=== PATIENT | male | born 1935 | race Caucasian/White ===

== ENCOUNTER 2017-09-18 08:47 | Observation (INO) | payer MEDICARE, OTHER ==
[2017-09-17 12:47] LABS: BASOPHILS % (AUTO) 0.7 % (0-1); EOSINOPHILS # (AUTO) 0.1 X10'3 (0-0.9); EOSINOPHILS % (AUTO) 2.7 % (0-6); HEMATOCRIT 35.7 % (42.0-52.0); HEMOGLOBIN 12.2 g/dl (14.0-17.9); LYMPHOCYTES # (AUTO) 0.7 X10'3 (1.1-4.8); LYMPHOCYTES % (AUTO) 14.5 % (21-51); MEAN CORPUSCULAR HEMOGLOBIN 32.5 PG (27.0-31.0); MEAN CORPUSCULAR HGB CONC 34.2 % (33.0-36.5); MONOCYTES # (AUTO) 0.5 X10'3 (0-0.9); MONOCYTES % (AUTO) 9.9 % (2-12); NEUTROPHILS # (AUTO) 3.6 X10'3 (1.8-7.7); NEUTROPHILS % (AUTO) 72.2 % (42-75); PLATELET COUNT 150 X10'3 (140-440); RED BLOOD COUNT 3.76 X10'6 (4.70-6.10); RED CELL DISTRIBUTION WIDTH 14.9 % (11.5-14.5)
[2017-09-17 12:57] LABS: INR 1.1 INR; PARTIAL THROMBOPLASTIN TIME 27 SECONDS (22-32); PROTHROMBIN TIME 11.8 SECONDS (9.0-12.0)
[2017-09-17 13:03] LABS: ALBUMIN 3.2 G/DL (3.4-5.0); ANION GAP 6 (8-16); BLOOD UREA NITROGEN 26 MG/DL (7-18); BUN/CREATININE RATIO 25.5 (5.4-32.0); CALCIUM 8.7 MG/DL (8.5-10.1); CHLORIDE 107 MMOL/L (99-107); CREATININE 1.02 MG/DL (0.60-1.10); GLUCOSE 76 MG/DL (70-104); POTASSIUM 4.5 MMOL/L (3.5-5.1); SODIUM 141 MMOL/L (135-145); TOTAL CARBON DIOXIDE 28.1 MMOL/L (24-32); eGFR 70 ML/MIN
[2017-09-18] VITALS (15 sets, daily range): BP systolic 128–171; BP diastolic 55–98
[~2017-09-18] VITALS: Ht 180.3 cm; Wt 89.7 kg
[2017-09-18] MEDS ORDERED: LORazepam 0.5 MG tablet PO PRN (09:25)
[2017-09-18] MEDS ORDERED: diphenhydrAMINE 25mg capsule PO PRN (09:25)
[2017-09-18] MEDS ORDERED: FURO-150 PO (09:27)
[2017-09-18] MEDS ORDERED: POTA10TA19 PO (09:27)
[2017-09-18] MEDS ORDERED: MAGN400C PO (09:27)
[2017-09-18] MEDS ORDERED: ASCO-261 PO (09:27)
[2017-09-18] MEDS ORDERED: ASPI81TA52 PO (09:27)
[2017-09-18] MEDS ORDERED: UBID100C16 PO (09:27)
[2017-09-18] MEDS ORDERED: LISI-600 PO (09:27)
[2017-09-18] MEDS ORDERED: LEVO25TA7 PO (09:27)
[2017-09-18] MEDS ORDERED: TURM538C PO (09:44)
[2017-09-18] MEDS ORDERED: FLAX100031 PO (09:44)
[2017-09-18] MEDS ORDERED: CHOL10002 PO (09:44)
[2017-09-18] MEDS ORDERED: APIX5TAB3 PO (09:44)
[2017-09-18] MEDS ORDERED: CALC-212 PO (09:44)
[2017-09-18] MEDS: normal saline 1000ml 1,000 ML IV SCH ×2 (09:59→19:25)
[2017-09-18] MEDS ORDERED: iohexol 350MG/ML 100ml bottle IV ONE ×2 (11:07→12:26)
[2017-09-18] MEDS ORDERED: midazolam 2 mg/2 ml injection ONE (11:07)
[2017-09-18] MEDS ORDERED: iohexol 350 MG/ML 50ML vial IV ONE (11:07)
[2017-09-18] MEDS ORDERED: LIDOcaine 1% (10mg/ml) 2ml vial ONE (11:07)
[2017-09-18] MEDS ORDERED: fentaNYL/PF 50MCG/1 ML 2ML syringe ONE (11:07)
[2017-09-18] MEDS ORDERED: heparin 1,000unit/ml 10ml vial 10 ML ONE (11:07)
[2017-09-18] MEDS ORDERED: nitroGLYCERIN-Tridil 50MG/D5W 250 ML IV ONE (11:07)
[2017-09-18] MEDS ORDERED: HYDROcodone/acetaminophen 10/325mg tab PO PRN (20:40)
[2017-09-18] MEDS ORDERED: OXAZEpam 15mg capsule PO PRN (20:40)
[2017-09-18] MEDS ORDERED: HYDROcodone/acetaminophen 5mg/325mg tablet PO PRN (20:40)
[2017-09-19 03:00] VITALS: BP 149/88
[2017-09-19 06:00] VITALS: BP 151/92
[2017-09-19] MEDS ORDERED: levoTHYROXINE 25mcg tablet PO SCH (07:00)
[2017-09-19] MEDS ORDERED: ascorbic acid 500mg tablet PO SCH (08:00)
[2017-09-19] MEDS ORDERED: magnesium oxide 400mg tablet PO SCH (08:00)
[2017-09-19] MEDS ORDERED: vitamin D (cholecalciferol) 1,000 unit tablet PO SCH (08:00)
[2017-09-19] MEDS ORDERED: aspirin 81mg tablet.DR PO SCH (08:00)
[2017-09-19] MEDS ORDERED: potassium chloride 10mEq ER tablet PO SCH (08:00)
[2017-09-19] MEDS ORDERED: furosemide 20MG tablet PO SCH (08:00)
[2017-09-19] MEDS ORDERED: lisinopril 10 MG tablet PO SCH (08:00)
[2017-09-19] MEDS ORDERED: [UNRECOGNIZED DRUG - REMARK] PEG SCH (08:00)
[2017-09-19] MEDS ORDERED: calcium carbonate/vitamin D3 tablet PO SCH (08:00)
[2017-09-19] MEDS ORDERED: apixaban 5mg tablet PO SCH (20:00)
== END 2017-09-19 10:40 | disposition home or self-care (01) ==
LOC: SSTAY O 08:47 → PCU 3S 19:40
PROVIDERS: ADMIT Internal Medicine Cardiovascular Disease; ATTEND Internal Medicine Cardiovascular Disease
DX: I34.0 Nonrheumatic mitral (valve) insufficiency (principal); I25.10 Atherosclerotic heart disease of native coronary artery without angina pectoris; E78.5 Hyperlipidemia, unspecified; I48.2 Chronic atrial fibrillation; I34.1 Nonrheumatic mitral (valve) prolapse; I36.1 Nonrheumatic tricuspid (valve) insufficiency; R01.1 Cardiac murmur, unspecified; I11.0 Hypertensive heart disease with heart failure; I50.9 Heart failure, unspecified; Z95.0 Presence of cardiac pacemaker; Z95.1 Presence of aortocoronary bypass graft; Z79.899 Other long term (current) drug therapy; Z79.82 Long term (current) use of aspirin; Z79.01 Long term (current) use of anticoagulants
CPT/HCPCS: 36415; 80048; 85025; 85610; 85730; 87070; 93005; 93459; A6257; C1760; C1769; C1887; G0378; J1644; J3010; J3490; J7030; Q0163; Q9967; 99152; 99153; A4620; J2250

== ENCOUNTER 2018-03-13 12:49 | Outpatient (CLI) | payer MEDICARE, OTHER ==
[~2018-03-13 12:49] MED LIST: APIX5TAB3 PO; ASCO-261 PO; ASPI81TA52 PO; CALC-212 PO; CHOL10002 PO; FLAX100031 PO; FURO-150 PO; LEVO25TA7 PO; LISI-600 PO; MAGN400C PO; POTA10TA19 PO; TURM538C PO; UBID100C16 PO
== END 2018-03-13 23:59 | disposition home or self-care (01) ==
LOC: CARD DIAG 12:49
PROVIDERS: ATTEND Internal Medicine Cardiovascular Disease
DX: I08.3 Combined rheumatic disorders of mitral, aortic and tricuspid valves (principal); I10 Essential (primary) hypertension; I48.91 Unspecified atrial fibrillation; Z79.82 Long term (current) use of aspirin
CPT/HCPCS: 93306

== ENCOUNTER 2018-04-16 08:58 | Day surgery (SDC) | payer MEDICARE, OTHER ==
[2018-04-15 17:39] LABS: EOSINOPHILS # (AUTO) 0.2 X10'3 (0-0.9); HEMATOCRIT 36.8 % (42.0-52.0); HEMOGLOBIN 12.2 g/dl (14.0-17.9); LYMPHOCYTES # (AUTO) 0.7 X10'3 (1.1-4.8); LYMPHOCYTES % (AUTO) 15.1 % (21-51); MEAN CORPUSCULAR HEMOGLOBIN 31.8 PG (27.0-31.0); MEAN CORPUSCULAR HGB CONC 33.1 % (33.0-36.5); MEAN PLATELET VOLUME 9.2 FL (7.4-10.4); MONOCYTES # (AUTO) 0.4 X10'3 (0-0.9); MONOCYTES % (AUTO) 7.9 % (2-12); NEUTROPHILS # (AUTO) 3.5 X10'3 (1.8-7.7); PLATELET COUNT 142 X10'3 (140-440); RED BLOOD COUNT 3.83 X10'6 (4.70-6.10); RED CELL DISTRIBUTION WIDTH 15.3 % (11.5-14.5); WHITE BLOOD COUNT 4.9 X10'3 (4.5-11.0)
[2018-04-15 17:53] LABS: ALBUMIN 3.3 G/DL (3.4-5.0); ANION GAP 6 (8-16); BLOOD UREA NITROGEN 33 MG/DL (7-18); BUN/CREATININE RATIO 28.4 (5.4-32.0); CALCIUM 8.8 MG/DL (8.5-10.1); CHLORIDE 105 MMOL/L (99-107); CREATININE 1.16 MG/DL (0.60-1.10); GLUCOSE 92 MG/DL (70-104); SODIUM 143 MMOL/L (135-145); TOTAL CARBON DIOXIDE 31.6 MMOL/L (24-32); eGFR 60 ML/MIN
[2018-04-15 17:56] LABS: INR 1.2 INR; PROTHROMBIN TIME 12.3 SECONDS (9.0-12.0)
[2018-04-16] VITALS (11 sets, daily range): BP systolic 104–137; BP diastolic 66–92
[~2018-04-16] VITALS: Ht 182.9 cm; Wt 90.9 kg
[2018-04-16] MEDS ORDERED: normal saline 1000ml 1,000 ML IV SCH ×2 (09:25→18:00)
[2018-04-16] MEDS ORDERED: diphenhydrAMINE 25mg capsule PO ONE (09:25)
[2018-04-16] MEDS ORDERED: LORazepam 0.5 MG tablet PO ONE (09:25)
[2018-04-16] MEDS ORDERED: CALC-336 PO (09:39)
[2018-04-16] MEDS ORDERED: AMIO200T40 PO ×2 (09:44→19:34)
[2018-04-16] MEDS ORDERED: LIDOcaine/PRILOcaine 5gm cream TP ONE (09:50)
[2018-04-16] MEDS ORDERED: midazolam 2 mg/2 ml injection ONE (13:48)
[2018-04-16] MEDS ORDERED: nitroGLYCERIN-Tridil 50MG/D5W 250 ML IV ONE (13:48)
[2018-04-16] MEDS ORDERED: iohexol 350MG/ML 100ml bottle IV ONE (13:49)
[2018-04-16] MEDS ORDERED: heparin 1,000unit/ml 10ml vial 10 ML ONE ×2 (13:49→16:44)
[2018-04-16] MEDS ORDERED: LIDOcaine 1% (10mg/ml)w/preservative injection 20ml MDV ONE (13:49)
[2018-04-16] MEDS ORDERED: iohexol 350 MG/ML 50ML vial IV ONE (13:49)
[2018-04-16] MEDS ORDERED: diltiazem 5mg/ml 5ml inj. IV ONE (15:01)
[2018-04-16] MEDS ORDERED: heparin 25,000 UNIT/250ml bag 250 ML IV ONE (15:24)
[2018-04-16] MEDS ORDERED: iohexol 350 MG/1 ML 200ml bottle ONE (15:24)
[2018-04-16] MEDS ORDERED: clopidogrel 300mg tablet ONE (16:27)
[2018-04-16] MEDS ORDERED: aspirin 81mg tab.chew PO ONE (18:15)
[2018-04-16] MEDS ORDERED: potassium Cl 20 mEq SR tablet PO STA (19:10)
[2018-04-16] MEDS ORDERED: CARV6.253 PO (19:34)
[2018-04-16] MEDS: furosemide 40mg/4ml inj IV SCH (20:22)
[2018-04-17 02:00] VITALS: BP 135/84
[2018-04-17 05:59] LABS: BASOPHILS % (AUTO) 0.7 % (0-1); EOSINOPHILS # (AUTO) 0.2 X10'3 (0-0.9); EOSINOPHILS % (AUTO) 3.5 % (0-6); HEMATOCRIT 36.9 % (42.0-52.0); HEMOGLOBIN 12.2 g/dl (14.0-17.9); LYMPHOCYTES # (AUTO) 0.7 X10'3 (1.1-4.8); LYMPHOCYTES % (AUTO) 16.4 % (21-51); MEAN CORPUSCULAR HEMOGLOBIN 31.8 PG (27.0-31.0); MEAN CORPUSCULAR HGB CONC 33.1 % (33.0-36.5); MEAN CORPUSCULAR VOLUME 96.3 FL (78-98); MEAN PLATELET VOLUME 8.8 FL (7.4-10.4); MONOCYTES # (AUTO) 0.4 X10'3 (0-0.9); MONOCYTES % (AUTO) 8.7 % (2-12); NEUTROPHILS # (AUTO) 3.2 X10'3 (1.8-7.7); NEUTROPHILS % (AUTO) 70.7 % (42-75); PLATELET COUNT 130 X10'3 (140-440); RED BLOOD COUNT 3.83 X10'6 (4.70-6.10); RED CELL DISTRIBUTION WIDTH 15.2 % (11.5-14.5); WHITE BLOOD COUNT 4.5 X10'3 (4.5-11.0)
[2018-04-17 06:00] VITALS: BP 134/86
[2018-04-17 06:24] LABS: ANION GAP 7 (8-16); BLOOD UREA NITROGEN 30 MG/DL (7-18); BUN/CREATININE RATIO 24.8 (5.4-32.0); CALCIUM 8.4 MG/DL (8.5-10.1); CHLORIDE 104 MMOL/L (99-107); CHOL/HDL RATIO 3.2 (0.00-4.99); CHOLESTEROL 125 MG/DL (0-200); CREATININE 1.21 MG/DL (0.60-1.10); GLUCOSE 103 MG/DL (70-104); HDL CHOLESTEROL 39 MG/DL (35-60); LDL CHOLESTEROL 82 MG/DL (50-100); POTASSIUM 4.1 MMOL/L (3.5-5.1); SODIUM 140 MMOL/L (135-145); TRIGLYCERIDES 28 MG/DL (20-135); eGFR 57 ML/MIN
[2018-04-17] MEDS ORDERED: ATOR20TA66 PO (06:52)
[2018-04-17] MEDS ORDERED: ASPI-1071 PO (06:52)
[2018-04-17] MEDS ORDERED: CLOP75TA35 PO (06:52)
[2018-04-17 07:00] VITALS: BP 134/86
[2018-04-17] MEDS ORDERED: ascorbic acid 500mg tablet PO SCH (08:00)
[2018-04-17] MEDS ORDERED: levoTHYROXINE 25mcg tablet PO SCH (08:00)
[2018-04-17] MEDS ORDERED: calcium carbonate 500mg tablet PO SCH (08:00)
[2018-04-17] MEDS ORDERED: aspirin 81mg tablet.DR PO SCH (08:00)
[2018-04-17] MEDS ORDERED: clopidogrel 75mg tablet PO SCH (08:00)
[2018-04-17] MEDS ORDERED: magnesium oxide 400mg tablet PO SCH (08:00)
[2018-04-17] MEDS ORDERED: non-formulary drug (Ubidecarenone (Coq-10) 300 MG) PO SCH (08:00)
[2018-04-17] MEDS ORDERED: atorvastatin 20mg tablet PO SCH (08:00)
[2018-04-17] MEDS ORDERED: FLAXSEED OIL 1400 MG PO SCH (08:00)
[2018-04-17] MEDS ORDERED: potassium chloride 10mEq ER tablet PO SCH (08:00)
[2018-04-17] MEDS ORDERED: vitamin D (cholecalciferol) 1,000 unit tablet PO SCH (08:00)
[2018-04-17] MEDS ORDERED: furosemide 20MG tablet PO SCH (08:00)
[2018-04-17] MEDS ORDERED: lisinopril 10 MG tablet PO SCH (08:00)
[2018-04-17] MEDS ORDERED: apixaban 5mg tablet PO SCH (08:00)
[2018-04-17] MEDS ORDERED: potassium Cl 20 mEq SR tablet PO SCH ×2 (08:00→08:30)
[2018-04-17] MEDS ORDERED: carvedilol 6.25mg tablet PO SCH (08:00)
[2018-04-17] MEDS: furosemide 40mg/4ml inj IV SCH (08:12)
[2018-04-17 08:21] VITALS: BP_SYST 134
== END 2018-04-17 11:00 | disposition home or self-care (01) ==
LOC: SSTAY O 08:58 → PCU 3S 20:05 → SSTAY O 04-17 11:00
PROVIDERS: ATTEND Internal Medicine Cardiovascular Disease
DX: I25.810 Atherosclerosis of coronary artery bypass graft(s) without angina pectoris (principal); E78.5 Hyperlipidemia, unspecified; I48.91 Unspecified atrial fibrillation; I08.0 Rheumatic disorders of both mitral and aortic valves; I47.2 Ventricular tachycardia; I49.5 Sick sinus syndrome; E03.9 Hypothyroidism, unspecified; I11.0 Hypertensive heart disease with heart failure; I50.9 Heart failure, unspecified; I49.8 Other specified cardiac arrhythmias; Z88.4 Allergy status to anesthetic agent; Z87.440 Personal history of urinary (tract) infections; Z98.52 Vasectomy status; Z90.89 Acquired absence of other organs; Z95.0 Presence of cardiac pacemaker; Z86.718 Personal history of other venous thrombosis and embolism; Z95.1 Presence of aortocoronary bypass graft; Z79.01 Long term (current) use of anticoagulants; Z79.899 Other long term (current) drug therapy; Z88.8 Allergy status to other drugs, medicaments and biological substances; Z98.890 Other specified postprocedural states; Z82.3 Family history of stroke
CPT/HCPCS: 36415; 80048; 80061; 83880; 84443; 85025; 85347; 85610; 87070; 93005; 93312; 93459; 99152; 99153; A6257; A6449; C1874; C9600; J1644; J1940; J2001; J2250; J7030; Q0163; Q9967; A4620; C1725; C1769; G0378; J3490

== ENCOUNTER 2018-04-29 11:22 | Emergency (ER) | payer MEDICARE, OTHER ==
[~2018-04-29] VITALS: Ht 182.9 cm; Wt 83.0 kg
[~2018-04-29 11:22] MED LIST changes: +AMIO200T40 PO; +ASPI-1071 PO; -ASPI81TA52 PO; +ATOR20TA66 PO; -CALC-212 PO; +CALC-336 PO; +CARV6.253 PO; +CLOP75TA35 PO; -TURM538C PO
[2018-04-29] MEDS ORDERED: oxymetazoline 15 ML nasal spray NS ONE (11:55)
[2018-04-29] MEDS ORDERED: tranexamic acid 100mg/ml inj. TP ONE (11:55)
[2018-04-29 12:26] VITALS: BP 139/72
== END 2018-04-29 13:56 | disposition home or self-care (01) ==
LOC: ER 11:23
DX: R04.0 Epistaxis (principal); I48.91 Unspecified atrial fibrillation; I25.10 Atherosclerotic heart disease of native coronary artery without angina pectoris; I11.0 Hypertensive heart disease with heart failure; I50.9 Heart failure, unspecified; Z95.1 Presence of aortocoronary bypass graft; Z98.890 Other specified postprocedural states; Z86.718 Personal history of other venous thrombosis and embolism; Z88.6 Allergy status to analgesic agent; Z79.82 Long term (current) use of aspirin; Z79.899 Other long term (current) drug therapy; Z79.01 Long term (current) use of anticoagulants
CPT/HCPCS: 99283

== ENCOUNTER 2018-06-10 08:42 | Emergency (ER) | payer MEDICARE, OTHER ==
[~2018-06-10] VITALS: Ht 182.9 cm; Wt 91.8 kg
[2018-06-10 08:52] VITALS: BP 133/73
[2018-06-10 09:35] LABS: BASOPHILS % (AUTO) 0.9 % (0-1); EOSINOPHILS # (AUTO) 0.2 X10'3 (0-0.9); EOSINOPHILS % (AUTO) 4.2 % (0-6); HEMOGLOBIN 12.1 g/dl (14.0-17.9); LYMPHOCYTES # (AUTO) 0.6 X10'3 (1.1-4.8); LYMPHOCYTES % (AUTO) 12.9 % (21-51); MEAN CORPUSCULAR HEMOGLOBIN 32.6 PG (27.0-31.0); MEAN CORPUSCULAR HGB CONC 33.5 % (33.0-36.5); MEAN CORPUSCULAR VOLUME 97.5 FL (78-98); MEAN PLATELET VOLUME 8.2 FL (7.4-10.4); MONOCYTES # (AUTO) 0.3 X10'3 (0-0.9); NEUTROPHILS # (AUTO) 3.5 X10'3 (1.8-7.7); PLATELET COUNT 133 X10'3 (140-440); RED BLOOD COUNT 3.69 X10'6 (4.70-6.10); RED CELL DISTRIBUTION WIDTH 16.9 % (11.5-14.5); WHITE BLOOD COUNT 4.7 X10'3 (4.5-11.0)
[2018-06-10 09:41] LABS: ALANINE AMINOTRANSFERASE 18 U/L (12-78); ALBUMIN 3.4 G/DL (3.4-5.0); ALBUMIN/GLOBULIN RATIO 0.9 (1.1-1.5); ALKALINE PHOSPHATASE 46 IU/L (46-116); ANION GAP 8 (8-16); ASPARTATE AMINO TRANSFERASE 20 U/L (10-37); BILIRUBIN,TOTAL 0.9 MG/DL (0.1-1.0); BLOOD UREA NITROGEN 27 MG/DL (7-18); BUN/CREATININE RATIO 22.1 (5.4-32.0); CALCIUM 8.5 MG/DL (8.5-10.1); CHLORIDE 106 MMOL/L (99-107); CREATININE 1.22 MG/DL (0.60-1.10); GLUCOSE 129 MG/DL (70-104); POTASSIUM 3.8 MMOL/L (3.5-5.1); SODIUM 143 MMOL/L (135-145); TOTAL CARBON DIOXIDE 29.5 MMOL/L (24-32); TOTAL PROTEIN 7.1 G/DL (6.4-8.2); eGFR 57 ML/MIN
[2018-06-10 09:47] LABS: PROTHROMBIN TIME 13.3 SECONDS (9.0-12.0)
[2018-06-10 09:48] LABS: INR 1.3 INR
[2018-06-10] MEDS ORDERED: furosemide 10 MG/1 ML 10ml inj IV ONE (10:10)
== END 2018-06-10 10:41 | disposition home or self-care (01) ==
LOC: ER 08:45
DX: I11.0 Hypertensive heart disease with heart failure (principal); I50.9 Heart failure, unspecified; I48.91 Unspecified atrial fibrillation; I25.10 Atherosclerotic heart disease of native coronary artery without angina pectoris; Z86.718 Personal history of other venous thrombosis and embolism; Z95.1 Presence of aortocoronary bypass graft; Z98.890 Other specified postprocedural states; Z88.6 Allergy status to analgesic agent; Z88.8 Allergy status to other drugs, medicaments and biological substances; Z79.82 Long term (current) use of aspirin; Z95.5 Presence of coronary angioplasty implant and graft
CPT/HCPCS: 36415; 71045; 80053; 83880; 84484; 85025; 85610; 93005; 96374; 99284; J1940

== ENCOUNTER 2018-06-30 17:17 | Emergency (ER) | payer MEDICARE, OTHER ==
[~2018-06-30] VITALS: Ht 182.9 cm; Wt 86.1 kg
[2018-06-30] MEDS ORDERED: oxymetazoline 15 ML nasal spray NS ONE (19:20)
--- NOTE | 2018-06-30 19:34 | NUR ---
PATIENT HAS HAD NOSEBLEEDS FOR TWO YEARS. PATIENT HAS SEEN TWO ENTS: IST SAW DR RICHARDSON, THEN SAW DR CAMACHO 1 YEAR AGO PATIENT WAS ON COUMADIN, SWITCHED TO ELIQUIS [address] HARRIS AND IS ALSO ON PLAVIX FOR "HIS HEART" PATIENT IS TO HAVE A "MITRAL VALVE CLIPPING" AT [facility]; PT WAS SEEN AT [facility] [place] FROM JUN 16 TO JUN 20 FOR GROSS EDEMA: "20 LBS OF FLUID TAKEN OFF HIM" PER DAUGHTER AT BEDSIDE AFTER ADMINISTERING AFRIN: SECOND NOSE CLIP PLACED ON SUPERIOR NOSE AND ICE PACK TO FOREHEAD PLACED WITH DEYSI WRAP (ACTUAL ICE). ORAL SUCTION IN ROOM, BUT YANKAUER TAKEN AWAY FROM PATIENT. PATIENT ASKED TO NOT TALK AND ALLOW CLOTTING TO HAPPEN. 100 ML OF SANGUINOUS FLUID IN SUCTION CANISTER. PATIENT HAS SPIT UP ONE LARGE CLOT SINCE TAKING YANKAUER AWAT. WHEN PATIENT WAS SELF SUCTIONING, HE WAS REPEATEDLY COUGHING UP MANY CLOTS.
--- NOTE | 2018-06-30 19:46 | NUR ---
SPOKE WITH DR GONZALEZ, ORDER FOR LABS
[2018-06-30 20:34] LABS: BASOPHILS % (AUTO) 0.5 % (0-1); EOSINOPHILS # (AUTO) 0.2 X10'3 (0-0.9); EOSINOPHILS % (AUTO) 2.7 % (0-6); HEMATOCRIT 35.6 % (42.0-52.0); LYMPHOCYTES # (AUTO) 0.7 X10'3 (1.1-4.8); LYMPHOCYTES % (AUTO) 12.3 % (21-51); MEAN CORPUSCULAR HEMOGLOBIN 32.8 PG (27.0-31.0); MEAN CORPUSCULAR HGB CONC 33.7 g/dL (33.0-36.5); MEAN CORPUSCULAR VOLUME 97.2 FL (78-98); MEAN PLATELET VOLUME 8.8 FL (7.4-10.4); MONOCYTES # (AUTO) 0.4 X10'3 (0-0.9); MONOCYTES % (AUTO) 7.2 % (2-12); NEUTROPHILS # (AUTO) 4.7 X10'3 (1.8-7.7); NEUTROPHILS % (AUTO) 77.3 % (42-75); PLATELET COUNT 180 X10'3 (140-440); RED BLOOD COUNT 3.66 X10'6 (4.70-6.10); RED CELL DISTRIBUTION WIDTH 16.7 % (11.5-14.5); WHITE BLOOD COUNT 6.1 X10'3 (4.5-11.0)
[2018-06-30 20:58] LABS: INR 1.4 INR; PARTIAL THROMBOPLASTIN TIME 29 SECONDS (22-32); PROTHROMBIN TIME 13.7 SECONDS (9.0-12.0)
--- NOTE | 2018-06-30 21:30 | NUR ---
DR ABBASI REMOVED BOTH NASAL CLAMPS AND ICE PACK FROM HEAD
--- NOTE | 2018-06-30 22:25 | NUR ---
DR ABBASI PLACED RHINO ROCKET UP LEFT NARES: TAPED TO FACE
[2018-06-30 23:24] VITALS: BP 110/73
== END 2018-06-30 23:31 | disposition home or self-care (01) ==
LOC: ER 17:18
DX: R04.0 Epistaxis (principal); I11.0 Hypertensive heart disease with heart failure; I50.9 Heart failure, unspecified; I48.91 Unspecified atrial fibrillation; I25.10 Atherosclerotic heart disease of native coronary artery without angina pectoris; Z88.8 Allergy status to other drugs, medicaments and biological substances; Z79.899 Other long term (current) drug therapy; Z79.82 Long term (current) use of aspirin; Z86.718 Personal history of other venous thrombosis and embolism; Z87.440 Personal history of urinary (tract) infections; Z90.49 Acquired absence of other specified parts of digestive tract; Z98.890 Other specified postprocedural states; Z95.1 Presence of aortocoronary bypass graft
CPT/HCPCS: 30901; 36415; 85025; 85610; 85730; 99284

== ENCOUNTER 2018-08-12 14:07 | Emergency (ER) | payer MEDICARE, OTHER ==
[~2018-08-12] VITALS: Ht 182.9 cm; Wt 83.0 kg
[2018-08-12 14:09] VITALS: BP 111/68
[2018-08-12] MEDS ORDERED: tranexamic acid 100mg/ml inj. TP ONE (15:20)
[2018-08-12 15:29] LABS: BASOPHILS % (AUTO) 0.8 % (0-1); EOSINOPHILS # (AUTO) 0.1 X10'3 (0-0.9); HEMATOCRIT 30.5 % (42.0-52.0); HEMOGLOBIN 10.4 g/dl (14.0-17.9); LYMPHOCYTES # (AUTO) 0.7 X10'3 (1.1-4.8); LYMPHOCYTES % (AUTO) 11.5 % (21-51); MEAN CORPUSCULAR HEMOGLOBIN 33.1 PG (27.0-31.0); MEAN CORPUSCULAR VOLUME 97.3 FL (78-98); MONOCYTES # (AUTO) 0.5 X10'3 (0-0.9); MONOCYTES % (AUTO) 7.7 % (2-12); PLATELET COUNT 159 X10'3 (140-440); RED BLOOD COUNT 3.13 X10'6 (4.70-6.10); RED CELL DISTRIBUTION WIDTH 15.2 % (11.5-14.5); WHITE BLOOD COUNT 6.5 X10'3 (4.5-11.0)
[2018-08-12] MEDS ORDERED: LIDOcaine 1% w/epiNEPHrine 1:200,000 30ml vial IM ONE (15:35)
[2018-08-12 15:37] LABS: INR 1.3 INR; PROTHROMBIN TIME 12.6 SECONDS (9.0-12.0)
[2018-08-12 15:41] LABS: ALANINE AMINOTRANSFERASE 16 U/L (12-78); ALBUMIN 3.3 G/DL (3.4-5.0); ALBUMIN/GLOBULIN RATIO 0.9 (1.1-1.5); ALKALINE PHOSPHATASE 55 IU/L (46-116); ANION GAP 8 (8-16); ASPARTATE AMINO TRANSFERASE 21 U/L (10-37); BILIRUBIN,TOTAL 0.9 MG/DL (0.1-1.0); BLOOD UREA NITROGEN 67 MG/DL (7-18); BUN/CREATININE RATIO 30.6 (5.4-32.0); CALCIUM 8.9 MG/DL (8.5-10.1); CHLORIDE 104 MMOL/L (99-107); CREATININE 2.19 MG/DL (0.60-1.10); GLUCOSE 119 MG/DL (70-104); POTASSIUM 4.8 MMOL/L (3.5-5.1); SODIUM 141 MMOL/L (135-145); TOTAL CARBON DIOXIDE 29.2 MMOL/L (24-32); TOTAL PROTEIN 7.1 G/DL (6.4-8.2); eGFR 29 ML/MIN
== END 2018-08-12 18:10 | disposition home or self-care (01) ==
LOC: ER 14:07
DX: R04.0 Epistaxis (principal); H73.892 Other specified disorders of tympanic membrane, left ear; I48.91 Unspecified atrial fibrillation; I25.10 Atherosclerotic heart disease of native coronary artery without angina pectoris; I11.0 Hypertensive heart disease with heart failure; I50.9 Heart failure, unspecified; Z88.8 Allergy status to other drugs, medicaments and biological substances; Z79.899 Other long term (current) drug therapy; Z79.82 Long term (current) use of aspirin; Z86.718 Personal history of other venous thrombosis and embolism; Z87.440 Personal history of urinary (tract) infections; Z90.49 Acquired absence of other specified parts of digestive tract; Z95.1 Presence of aortocoronary bypass graft; Z98.890 Other specified postprocedural states
CPT/HCPCS: 30901; 36415; 70486; 80053; 85025; 85610; 99284

== ENCOUNTER 2018-08-21 14:58 | Inpatient (IN) | payer MEDICARE, OTHER | END 2018-08-26 16:55 | disposition home health service (06) | LOC: PCU 3S 08-24 17:15 → ER 14:58 → MED 3N 08-22 12:37 → ED HOLD 20:12 | DX: I50.33 Acute on chronic diastolic (congestive) heart failure (principal); N17.9 Acute kidney failure, unspecified; N18.9 Chronic kidney disease, unspecified; I48.2 Chronic atrial fibrillation ==

== ENCOUNTER 2019-01-21 19:04 | Inpatient (IN) | payer MEDICARE, OTHER ==
[~2019-01-21] VITALS: Ht 185.4 cm; Wt 81.6 kg
[~2019-01-21 19:04] MED LIST changes: -AMIO200T40 PO; +AMIO200T61 PO; -APIX5TAB3 PO; -FURO-150 PO; -LISI-600 PO; +MIDO5TAB4 PO; -POTA10TA19 PO
[2019-01-21] MEDS ORDERED: normal saline 1000ml 1,000 ML IV ONE (19:35)
[2019-01-21] MEDS ORDERED: CefTRIAXone/D5W-Rocephin 1gm 50 ML IV ONE (19:35)
[2019-01-21] MEDS ORDERED: acetaminophen 325mg tablet PO ONE (19:35)
--- NOTE | 2019-01-21 19:38 | NUR ---
DAUGHTER DONALD AT BEDSIDE - REPORTS PT IS NORMALLY VERY ACTIVE AND WAS EVEN DRIVING YESTERDAY. TODAY PT HAD NEW ONSET GENERALIZED WEAKNESS WITH ALOC. PT ALERT TO NAME AND BDAY AND FOLLOWS COMMANDS. EQUAL NURSE GYNECOLOGY AND PUSH PULLS, BUT WEAK.
--- NOTE | 2019-01-21 19:47 | NUR ---
AT BEDSIDE FOR EVAL
[2019-01-21 20:00] LABS: BASOPHILS % (AUTO) 0.6 % (0-1); EOSINOPHILS % (AUTO) 0.1 % (0-6); HEMOGLOBIN 11.2 g/dl (14.0-17.9); LYMPHOCYTES # (AUTO) 0.5 X10'3 (1.1-4.8); LYMPHOCYTES % (AUTO) 9.4 % (21-51); MEAN CORPUSCULAR HEMOGLOBIN 31.2 PG (27.0-31.0); MEAN CORPUSCULAR VOLUME 94.6 FL (78-98); MEAN PLATELET VOLUME 7.9 FL (7.4-10.4); MONOCYTES # (AUTO) 0.4 X10'3 (0-0.9); MONOCYTES % (AUTO) 7.6 % (2-12); NEUTROPHILS # (AUTO) 4.7 X10'3 (1.8-7.7); NEUTROPHILS % (AUTO) 82.3 % (42-75); PLATELET COUNT 149 X10'3 (140-440); RED CELL DISTRIBUTION WIDTH 17.2 % (11.5-14.5); WHITE BLOOD COUNT 5.7 X10'3 (4.5-11.0)
[2019-01-21 20:13] LABS: ALANINE AMINOTRANSFERASE 21 U/L (12-78); ALBUMIN 3.1 G/DL (3.4-5.0); ALBUMIN/GLOBULIN RATIO 0.9 (1.1-1.5); ALKALINE PHOSPHATASE 73 IU/L (46-116); ANION GAP 5 (8-16); ASPARTATE AMINO TRANSFERASE 22 U/L (10-37); BILIRUBIN,TOTAL 1.3 MG/DL (0.1-1.0); BLOOD UREA NITROGEN 23 MG/DL (7-18); BUN/CREATININE RATIO 18.1 (5.4-32.0); CALCIUM 8.8 MG/DL (8.5-10.1); CHLORIDE 106 MMOL/L (99-107); CREATININE 1.27 MG/DL (0.60-1.10); GLUCOSE 127 MG/DL (70-104); POTASSIUM 5.5 MMOL/L (3.5-5.1); SODIUM 140 MMOL/L (135-145); TOTAL CARBON DIOXIDE 28.6 MMOL/L (24-32); TOTAL PROTEIN 6.5 G/DL (6.4-8.2); eGFR 54 ML/MIN
[2019-01-21 20:33] LABS: CLARITY,URINE CLEAR (Clear); COLOR,URINE AMBER (Yellow); GLUCOSE, URINE NEGATIVE (Neg); KETONES,URINE NEGATIVE (Neg); LEUKOCYTE ESTERASE ,URINE NEGATIVE (Neg); NITRITES, URINE NEGATIVE (Neg); OCCULT BLOOD,URINE NEGATIVE (Neg); PH,URINE 8.5 (4.8-8.0); PROTEIN,URINE 30 mg/dl (Neg)
[2019-01-21 20:36] LABS: UA COLLECTION TYPE STRAIGHT CATH
[2019-01-21 20:38] LABS: AMORPHOUS PHOSPHATES 1+; BACTERIA,URINE NONE SEEN /HPF (Neg); MUCUS STRANDS FEW /LPF (Neg); RBC,URINE NONE SEEN /HPF (0-2); SQUAMOUS EPITHELIAL CELL,UR NONE SEEN /LPF (FEW); WBC,URINE NONE SEEN /HPF (0-4)
[2019-01-21 20:41] LABS: PARTIAL THROMBOPLASTIN TIME 23 SECONDS (22-32)
[2019-01-21] MEDS ORDERED: ketorolac trometh. 30mg/ml inj. IV ONE (21:15)
[2019-01-21] MEDS ORDERED: MULT-955 PO (21:38)
[2019-01-21] MEDS ORDERED: ATOR20TA PO (21:38)
[2019-01-21] MEDS ORDERED: APIX5TAB3 PO (21:38)
[2019-01-21] MEDS ORDERED: CLOP75TA33 PO (21:38)
[2019-01-21] MEDS ORDERED: MIDO2.5T14 PO (21:38)
[2019-01-21] MEDS ORDERED: BUME1TAB8 PO (21:38)
[2019-01-21] MEDS ORDERED: CHOL100046 PO (21:38)
[2019-01-21] MEDS ORDERED: POTA10TA19 PO (21:38)
[2019-01-21 21:39] LABS: URINE AMPHETAMINE SCREEN NEGATIVE (Neg); URINE BARBITUATE SCREEN NEGATIVE (Neg); URINE BENZODIAZEPINES SCREEN NEGATIVE (Neg); URINE CANNABINOID SCREEN NEGATIVE (Neg); URINE COCAINE SCREEN NEGATIVE (Neg); URINE METHADONE SCREEN NEGATIVE (Neg); URINE OPIATE SCREEN NEGATIVE (Neg); URINE PHENCYCLIDINE SCREEN NEGATIVE (Neg)
--- NOTE | 2019-01-21 21:45 | NUR ---
pt is more alert and responsive - daughter remains at bedside.
[2019-01-21] MEDS ORDERED: azithromycin/NS 500mg/250ml 250 ML IV ONE (22:00)
[2019-01-21 22:14] LABS: TROPONIN I < 0.04 NG/ML (0.0-0.05)
[2019-01-21] MEDS ORDERED: acetaminophen 325mg tablet PO PRN (22:20)
[2019-01-21] MEDS ORDERED: HYDROcodone/acetaminophen 5mg/325mg tablet PO PRN (22:20)
[2019-01-21] MEDS ORDERED: magnesium hydroxide 30ml (MOM) UD suspension PO PRN (22:20)
[2019-01-21] MEDS ORDERED: ondansetron/PF 4mg/2ml inj IV PRN (22:20)
[2019-01-21] MEDS ORDERED: HYDROcodone/acetaminophen 10/325mg tab PO PRN (22:20)
[2019-01-21] MEDS ORDERED: mag hydrox/Alum hydrox/simeth 30ml oral suspension PO PRN (22:20)
--- NOTE | 2019-01-21 23:31 | NUR ---
REPORT CALLED FROM ER BY DAVION LEDESMA. AWAITING PT ARRIVAL TO UNIT
[2019-01-21 23:50] VITALS: BP 119/74
--- NOTE | 2019-01-21 23:50 | NUR ---
PT ARRIVED TO UNIT VIA GURNEY. TRANSFERRED SELF TO BED WITH FWW. CALL LIGHT IN REACH, VITALS TAKEN, BLL. WILL CONTINUE TO MONITOR
[2019-01-22 06:19] LABS: BASOPHILS % (AUTO) 0.5 % (0-1); EOSINOPHILS % (AUTO) 0.1 % (0-6); HEMATOCRIT 34.8 % (42.0-52.0); HEMOGLOBIN 11.6 g/dl (14.0-17.9); LYMPHOCYTES # (AUTO) 0.8 X10'3 (1.1-4.8); LYMPHOCYTES % (AUTO) 12.7 % (21-51); MEAN CORPUSCULAR HEMOGLOBIN 31.3 PG (27.0-31.0); MEAN CORPUSCULAR HGB CONC 33.4 g/dL (33.0-36.5); MEAN CORPUSCULAR VOLUME 93.8 FL (78-98); MEAN PLATELET VOLUME 7.8 FL (7.4-10.4); MONOCYTES # (AUTO) 0.6 X10'3 (0-0.9); MONOCYTES % (AUTO) 9.9 % (2-12); NEUTROPHILS # (AUTO) 4.8 X10'3 (1.8-7.7); NEUTROPHILS % (AUTO) 76.8 % (42-75); PLATELET COUNT 168 X10'3 (140-440); RED BLOOD COUNT 3.71 X10'6 (4.70-6.10); RED CELL DISTRIBUTION WIDTH 17.4 % (11.5-14.5); WHITE BLOOD COUNT 6.2 X10'3 (4.5-11.0)
[2019-01-22 06:29] LABS: ALBUMIN 3.1 G/DL (3.4-5.0); ANION GAP 7 (8-16); BLOOD UREA NITROGEN 27 MG/DL (7-18); BUN/CREATININE RATIO 18.1 (5.4-32.0); CALCIUM 8.7 MG/DL (8.5-10.1); CHLORIDE 106 MMOL/L (99-107); CREATININE 1.49 MG/DL (0.60-1.10); GLUCOSE 129 MG/DL (70-104); SODIUM 140 MMOL/L (135-145); TOTAL CARBON DIOXIDE 27.4 MMOL/L (24-32); eGFR 45 ML/MIN
--- NOTE | 2019-01-22 06:33 | NUR ---
Problems reprioritized. Patient report given, questions answered & plan of care reviewed with DAVION Frazier.
--- NOTE | 2019-01-22 06:56 | NUR ---
Patient in room [facility]. I have received report from Mike RICARDO and had the opportunity to ask questions and assume patient care.
[2019-01-22 07:00] VITALS: BP 129/76
[2019-01-22] MEDS: acetaminophen 325mg tablet PO PRN ×3 (07:28→23:13)
[2019-01-22] MEDS: multivitamins, therapeutics tablet PO SCH (07:29)
[2019-01-22] MEDS: magnesium oxide 400mg tablet PO SCH ×2 (07:29→20:10)
[2019-01-22] MEDS: ascorbic acid 500mg tablet PO SCH (07:29)
[2019-01-22] MEDS: carvedilol 6.25mg tablet PO SCH ×2 (07:29→20:11)
[2019-01-22] MEDS: calcium carbonate 500mg tablet PO SCH (07:29)
[2019-01-22] MEDS: levoTHYROXINE 25mcg tablet PO SCH (07:30)
[2019-01-22] MEDS: amiodarone 200mg tablet PO SCH (07:30)
[2019-01-22] MEDS: vitamin D (cholecalciferol) 1,000 unit tablet PO SCH (07:30)
[2019-01-22] MEDS: apixaban 5mg tablet PO SCH ×2 (07:30→20:10)
[2019-01-22] MEDS: clopidogrel 75mg tablet PO SCH (07:30)
[2019-01-22] MEDS ORDERED: FLAXSEED OIL 1400 MG PO SCH (08:00)
[2019-01-22] MEDS: midodrine tablet 2.5 MG TABLET PO SCH ×2 (08:00→20:10)
[2019-01-22] MEDS ORDERED: non-formulary drug (Ubidecarenone (Coq-10) 300 MG) PO SCH (08:00)
--- NOTE | 2019-01-22 09:16 | NUR ---
Patient had an episode of bloody urine, exhibiting difficulty with urinating, bladder is distended. Bladder scan done showed 250ml of residual urine. Dr. Guerin notified via paging system
[2019-01-22] MEDS ORDERED: LIDOcaine 2% 10ml TOPICAL JELLY (Urojet) MM ONE (10:00)
--- NOTE | 2019-01-22 10:26 | NUR ---
Giordano catheter Fr16 inserted. Urojet jelly applied into the meatus prior to insertion. Patient tolerated the procedure well. Dark tea-colored urine with some blood clots noted when giordano catheter was inserted.
[2019-01-22 11:00] VITALS: BP 137/77
[2019-01-22] MEDS: bumetanide 1mg tablet PO SCH ×2 (11:45→20:10)
--- NOTE | 2019-01-22 12:04 | NUR ---
Dr. Guerin notified about patient's urine color (appears to be dark chocolate color). Charge nurse Yaquelin was also notified about this
[2019-01-22 14:46] LABS: CLARITY,URINE CLOUDY (Clear); COLOR,URINE AMBER (Yellow); GLUCOSE, URINE NEGATIVE (Neg); KETONES,URINE NEGATIVE (Neg); LEUKOCYTE ESTERASE ,URINE TRACE (Neg); NITRITES, URINE NEGATIVE (Neg); OCCULT BLOOD,URINE LARGE (Neg); PH,URINE 6.5 (4.8-8.0); PROTEIN,URINE 100 mg/dl (Neg)
[2019-01-22 15:07] LABS: UA COLLECTION TYPE FOLEY CATH
[2019-01-22 15:19] LABS: BACTERIA,URINE NONE SEEN /HPF (Neg); RBC,URINE TNTC /HPF (0-2)
[2019-01-22 15:20] LABS: HYALINE CASTS 0-3 /LPF (NEGATIVE); MUCUS STRANDS MODERATE /LPF (Neg); SQUAMOUS EPITHELIAL CELL,UR FEW /LPF (FEW)
[2019-01-22 15:45] LABS: AMORPHOUS PHOSPHATES 1+
--- NOTE | 2019-01-22 15:50 | NUR ---
Dr. Guerin notified about the fever this am and again this afternoon 102.5F.
[2019-01-22] MEDS ORDERED: LORazepam 0.5 MG tablet PO PRN (17:15)
[2019-01-22] MEDS ORDERED: LORazepam 2 mg/ml vial IV PRN (17:15)
--- NOTE | 2019-01-22 17:24 | NUR ---
Patient has been attempting to pull out his giordano catheter, I caught him holding his giordano catheter tubing. Patient was instructed to not pull his catheter because he will bleed since he already have bloody urine. Addendum: 01/22/19 at 1727 by Karin Flores RN Got an order for sitter and Heidy BOSWELL. Daughter at bedside at the moment
[2019-01-22 18:00] VITALS: BP 120/71
--- NOTE | 2019-01-22 18:30 | NUR ---
Patient in room [facility]. I have received report from DAVION Frazier and had the opportunity to ask questions and assume patient care.
--- NOTE | 2019-01-22 18:39 | NUR ---
Problems reprioritized. Patient report given, questions answered & plan of care reviewed with Mike RICARDO.
--- NOTE | 2019-01-22 20:00 | NUR ---
2 rn skin check was performed with DAVION Acosta
[2019-01-22] MEDS: lactobacillus rhamnosus 10,000 MMU CELLS/CAPSULE PO SCH (20:10)
[2019-01-22] MEDS: atorvastatin 20mg tablet PO SCH (20:10)
[2019-01-22] MEDS: CefTRIAXone/D5W-Rocephin 1gm 50 ML IV SCH (20:11)
[2019-01-22] MEDS: diatr meglu/diatrizoate 30ml oral sol.-(3 dose) bottle PO SCH (20:12)
[2019-01-22] MEDS: azithromycin/NS 500mg/250ml 250 ML IV SCH (22:24)
--- NOTE | 2019-01-22 23:08 | NUR ---
notified of 102.1 F fever. no new orders. will give tylenol per PRN order
--- NOTE | 2019-01-22 23:29 | NUR ---
pt became increasingly agitated/restless, unable to calm down through therapeutic communication. pt still attempting to get out of bed. PO prn ativan given. will continue to monitor
[2019-01-23 00:42] VITALS: BP 117/61
--- NOTE | 2019-01-23 00:45 | NUR ---
pt tempt at 101.3F pt in no apparent distress, placed cool wash cloth on forehead, resting comfortably. will continue to monitor
[2019-01-23 05:51] VITALS: BP 125/70
[2019-01-23 06:23] LABS: BASOPHILS % (AUTO) 0.2 % (0-1); EOSINOPHILS % (AUTO) 0 % (0-6); HEMATOCRIT 34.8 % (42.0-52.0); HEMOGLOBIN 11.7 g/dl (14.0-17.9); LYMPHOCYTES # (AUTO) 0.7 X10'3 (1.1-4.8); LYMPHOCYTES % (AUTO) 8.9 % (21-51); MEAN CORPUSCULAR HEMOGLOBIN 31.4 PG (27.0-31.0); MEAN CORPUSCULAR HGB CONC 33.5 g/dL (33.0-36.5); MEAN CORPUSCULAR VOLUME 93.7 FL (78-98); MEAN PLATELET VOLUME 8.1 FL (7.4-10.4); MONOCYTES # (AUTO) 0.7 X10'3 (0-0.9); NEUTROPHILS # (AUTO) 6.8 X10'3 (1.8-7.7); NEUTROPHILS % (AUTO) 82.9 % (42-75); PLATELET COUNT 165 X10'3 (140-440); RED BLOOD COUNT 3.71 X10'6 (4.70-6.10); WHITE BLOOD COUNT 8.2 X10'3 (4.5-11.0)
--- NOTE | 2019-01-23 06:29 | NUR ---
Problems reprioritized. Patient report given, questions answered & plan of care reviewed with DAVION Frazier.
[2019-01-23 06:44] LABS: ALBUMIN 2.9 G/DL (3.4-5.0); ANION GAP 10 (8-16); BLOOD UREA NITROGEN 32 MG/DL (7-18); BUN/CREATININE RATIO 19.8 (5.4-32.0); CALCIUM 8.1 MG/DL (8.5-10.1); CHLORIDE 104 MMOL/L (99-107); CREATININE 1.62 MG/DL (0.60-1.10); GLUCOSE 134 MG/DL (70-104); POTASSIUM 4.6 MMOL/L (3.5-5.1); SODIUM 141 MMOL/L (135-145); TOTAL CARBON DIOXIDE 27.5 MMOL/L (24-32); eGFR 41 ML/MIN
--- NOTE | 2019-01-23 06:44 | NUR ---
Patient in room [facility]. I have received report from Mike RICARDO and had the opportunity to ask questions and assume patient care.
[2019-01-23 07:00] VITALS: BP 149/80
[2019-01-23] MEDS: diatr meglu/diatrizoate 30ml oral sol.-(3 dose) bottle PO SCH ×2 (07:12→10:12)
[2019-01-23] MEDS: midodrine tablet 2.5 MG TABLET PO SCH ×2 (08:00→20:00)
[2019-01-23 11:00] VITALS: BP 147/81
[2019-01-23] MEDS: carvedilol 6.25mg tablet PO SCH ×2 (11:18→20:51)
[2019-01-23] MEDS: vitamin D (cholecalciferol) 1,000 unit tablet PO SCH (11:18)
[2019-01-23] MEDS: multivitamins, therapeutics tablet PO SCH (11:18)
[2019-01-23] MEDS: amiodarone 200mg tablet PO SCH (11:18)
[2019-01-23] MEDS: levoTHYROXINE 25mcg tablet PO SCH (11:18)
[2019-01-23] MEDS: acetaminophen 325mg tablet PO PRN ×2 (11:19→23:39)
[2019-01-23] MEDS: bumetanide 1mg tablet PO SCH ×2 (11:19→20:51)
[2019-01-23] MEDS: lactobacillus rhamnosus 10,000 MMU CELLS/CAPSULE PO SCH ×2 (11:19→20:51)
[2019-01-23] MEDS: apixaban 5mg tablet PO SCH ×2 (11:20→20:51)
[2019-01-23] MEDS: calcium carbonate 500mg tablet PO SCH (11:20)
[2019-01-23] MEDS: clopidogrel 75mg tablet PO SCH (11:20)
[2019-01-23] MEDS: ascorbic acid 500mg tablet PO SCH (11:20)
[2019-01-23] MEDS: magnesium oxide 400mg tablet PO SCH ×2 (11:23→20:51)
[2019-01-23 18:00] VITALS: BP 136/73
--- NOTE | 2019-01-23 18:00 | NUR ---
Patient in room [facility]. I have received report from DAVION Frazier and had the opportunity to ask questions and assume patient care.
--- NOTE | 2019-01-23 18:17 | NUR ---
Problems reprioritized. Patient report given, questions answered & plan of care reviewed with Mike RICARDO.
[2019-01-23] MEDS: CefTRIAXone/D5W-Rocephin 1gm 50 ML IV SCH (20:50)
[2019-01-23] MEDS: atorvastatin 20mg tablet PO SCH (20:51)
--- NOTE | 2019-01-23 22:40 | NUR ---
pt temperature elevated at 102.8F MD notified, ordered lactic and 2 sets of blood cultures.
[2019-01-23] MEDS: azithromycin/NS 500mg/250ml 250 ML IV SCH (23:39)
[2019-01-24] VITALS: BP 130/74
[2019-01-24 05:58] LABS: BASOPHILS % (AUTO) 0.3 % (0-1); EOSINOPHILS % (AUTO) 0.3 % (0-6); HEMATOCRIT 30.8 % (42.0-52.0); HEMOGLOBIN 10.4 g/dl (14.0-17.9); LYMPHOCYTES # (AUTO) 0.7 X10'3 (1.1-4.8); LYMPHOCYTES % (AUTO) 9.3 % (21-51); MEAN CORPUSCULAR HEMOGLOBIN 31.8 PG (27.0-31.0); MEAN CORPUSCULAR HGB CONC 33.9 g/dL (33.0-36.5); MEAN CORPUSCULAR VOLUME 93.8 FL (78-98); MEAN PLATELET VOLUME 8.1 FL (7.4-10.4); MONOCYTES # (AUTO) 0.7 X10'3 (0-0.9); MONOCYTES % (AUTO) 9.4 % (2-12); NEUTROPHILS # (AUTO) 6.3 X10'3 (1.8-7.7); NEUTROPHILS % (AUTO) 80.7 % (42-75); PLATELET COUNT 151 X10'3 (140-440); RED BLOOD COUNT 3.28 X10'6 (4.70-6.10); RED CELL DISTRIBUTION WIDTH 17.1 % (11.5-14.5); WHITE BLOOD COUNT 7.8 X10'3 (4.5-11.0)
--- NOTE | 2019-01-24 06:30 | NUR ---
Patient in room [facility]. I have received report from Mike RICARDO and had the opportunity to ask questions and assume patient care.
--- NOTE | 2019-01-24 06:35 | NUR ---
Problems reprioritized. Patient report given, questions answered & plan of care reviewed with DAVION Sher.
[2019-01-24 06:36] LABS: ALBUMIN 2.5 G/DL (3.4-5.0); ANION GAP 7 (8-16); BLOOD UREA NITROGEN 30 MG/DL (7-18); BUN/CREATININE RATIO 22.6 (5.4-32.0); CALCIUM 7.3 MG/DL (8.5-10.1); CHLORIDE 105 MMOL/L (99-107); CREATININE 1.33 MG/DL (0.60-1.10); GLUCOSE 114 MG/DL (70-104); POTASSIUM 3.4 MMOL/L (3.5-5.1); SODIUM 140 MMOL/L (135-145); eGFR 51 ML/MIN
[2019-01-24 07:21] VITALS: BP 127/71
[2019-01-24] MEDS: midodrine tablet 2.5 MG TABLET PO SCH ×2 (08:00→19:49)
[2019-01-24] MEDS: bumetanide 1mg tablet PO SCH ×2 (08:49→19:48)
[2019-01-24] MEDS: calcium carbonate 500mg tablet PO SCH (08:49)
[2019-01-24] MEDS: multivitamins, therapeutics tablet PO SCH (08:49)
[2019-01-24] MEDS: amiodarone 200mg tablet PO SCH (08:49)
[2019-01-24] MEDS: apixaban 5mg tablet PO SCH ×2 (08:49→19:48)
[2019-01-24] MEDS: clopidogrel 75mg tablet PO SCH (08:50)
[2019-01-24] MEDS: carvedilol 6.25mg tablet PO SCH ×2 (08:50→19:48)
[2019-01-24] MEDS: magnesium oxide 400mg tablet PO SCH ×2 (08:50→19:48)
[2019-01-24] MEDS: lactobacillus rhamnosus 10,000 MMU CELLS/CAPSULE PO SCH ×2 (08:50→19:47)
[2019-01-24] MEDS: levoTHYROXINE 25mcg tablet PO SCH (08:51)
[2019-01-24] MEDS: vitamin D (cholecalciferol) 1,000 unit tablet PO SCH (08:51)
[2019-01-24] MEDS: ascorbic acid 500mg tablet PO SCH (08:51)
[2019-01-24] MEDS ORDERED: magnesium 4gm in 100ml NS 100 ML IV PRN (18:05)
[2019-01-24] MEDS ORDERED: potassium Cl 20 mEq SR tablet PO PRN (18:05)
[2019-01-24] MEDS ORDERED: potassium CL 10mEq/100ml bag 100 ML IV PRN (18:05)
[2019-01-24] MEDS ORDERED: magnesium 2GM in 50ml NS 50 ML IV PRN (18:05)
[2019-01-24] MEDS ORDERED: magnesium Cl slow-release 64mg tablet PO PRN (18:05)
--- NOTE | 2019-01-24 18:30 | NUR ---
Problems reprioritized. Patient report given, questions answered & plan of care reviewed with Prudence RN.
[2019-01-24 19:00] VITALS: BP 119/84
--- NOTE | 2019-01-24 19:02 | NUR ---
Patient in room [facility]. I have received report from Christos RICARDO and had the opportunity to ask questions and assume patient care.
[2019-01-24] MEDS: potassium Cl 20 mEq SR tablet PO PRN (19:47)
[2019-01-24] MEDS: azithromycin 250mg tablet PO SCH (19:48)
[2019-01-24] MEDS: acetaminophen 325mg tablet PO PRN (19:48)
[2019-01-24] MEDS: atorvastatin 20mg tablet PO SCH (21:50)
[2019-01-24] MEDS: CefTRIAXone/D5W-Rocephin 1gm 50 ML IV SCH (21:50)
[2019-01-25] VITALS: BP 147/70
[2019-01-25] MEDS: potassium Cl 20 mEq SR tablet PO PRN (00:33)
[2019-01-25 05:46] LABS: BASOPHILS % (AUTO) 0.3 % (0-1); EOSINOPHILS # (AUTO) 0.1 X10'3 (0-0.9); EOSINOPHILS % (AUTO) 0.8 % (0-6); HEMATOCRIT 33.8 % (42.0-52.0); HEMOGLOBIN 11.3 g/dl (14.0-17.9); LYMPHOCYTES # (AUTO) 0.6 X10'3 (1.1-4.8); LYMPHOCYTES % (AUTO) 7.8 % (21-51); MEAN CORPUSCULAR HEMOGLOBIN 31.4 PG (27.0-31.0); MEAN CORPUSCULAR HGB CONC 33.5 g/dL (33.0-36.5); MEAN CORPUSCULAR VOLUME 93.8 FL (78-98); MEAN PLATELET VOLUME 7.8 FL (7.4-10.4); MONOCYTES # (AUTO) 0.7 X10'3 (0-0.9); MONOCYTES % (AUTO) 9.4 % (2-12); NEUTROPHILS # (AUTO) 6.3 X10'3 (1.8-7.7); NEUTROPHILS % (AUTO) 81.7 % (42-75); PLATELET COUNT 163 X10'3 (140-440); RED CELL DISTRIBUTION WIDTH 17.2 % (11.5-14.5); WHITE BLOOD COUNT 7.7 X10'3 (4.5-11.0)
[2019-01-25 06:21] LABS: ALBUMIN 2.5 G/DL (3.4-5.0); ANION GAP 6 (8-16); BLOOD UREA NITROGEN 28 MG/DL (7-18); BUN/CREATININE RATIO 22.6 (5.4-32.0); CALCIUM 8.4 MG/DL (8.5-10.1); CHLORIDE 103 MMOL/L (99-107); CREATININE 1.24 MG/DL (0.60-1.10); GLUCOSE 110 MG/DL (70-104); MAGNESIUM 2.3 MG/DL (1.5-2.4); SODIUM 139 MMOL/L (135-145); TOTAL CARBON DIOXIDE 29.9 MMOL/L (24-32); eGFR 56 ML/MIN
--- NOTE | 2019-01-25 06:30 | NUR ---
Patient in room [facility]. I have received report from Alba RICARDO and had the opportunity to ask questions and assume patient care.
[2019-01-25 07:27] VITALS: BP 147/87
[2019-01-25] MEDS: bumetanide 1mg tablet PO SCH ×2 (09:09→20:06)
[2019-01-25] MEDS: levoTHYROXINE 25mcg tablet PO SCH (09:09)
[2019-01-25] MEDS: apixaban 5mg tablet PO SCH ×2 (09:09→20:06)
[2019-01-25] MEDS: multivitamins, therapeutics tablet PO SCH (09:09)
[2019-01-25] MEDS: vitamin D (cholecalciferol) 1,000 unit tablet PO SCH (09:09)
[2019-01-25] MEDS: magnesium oxide 400mg tablet PO SCH ×2 (09:09→20:06)
[2019-01-25] MEDS: lactobacillus rhamnosus 10,000 MMU CELLS/CAPSULE PO SCH ×2 (09:09→20:06)
[2019-01-25] MEDS: amiodarone 200mg tablet PO SCH (09:09)
[2019-01-25] MEDS: calcium carbonate 500mg tablet PO SCH (09:10)
[2019-01-25] MEDS: midodrine tablet 2.5 MG TABLET PO SCH ×2 (09:10→20:00)
[2019-01-25] MEDS: ascorbic acid 500mg tablet PO SCH (09:10)
[2019-01-25] MEDS: carvedilol 6.25mg tablet PO SCH ×2 (09:10→20:06)
[2019-01-25] MEDS: clopidogrel 75mg tablet PO SCH (09:10)
[2019-01-25 11:00] VITALS: BP 125/72
[2019-01-25] MEDS ORDERED: bisacodyl 10mg suppository rectal RC STA (11:11)
[2019-01-25] MEDS ORDERED: mineral oil 133ml enema RC PRN (11:15)
--- NOTE | 2019-01-25 12:34 | NUR ---
SUPPOSITORY WAS NOT ADMINISTERED TODAY, AFTER PATIENT WORKED WITH PT PATIENT HAD A MEDIUM/LARGE BM
[2019-01-25] MEDS: simethicone 80mg chew tab PO SCH ×2 (13:31→20:05)
[2019-01-25] MEDS: acetaminophen 325mg tablet PO PRN (16:46)
[2019-01-25 18:00] VITALS: BP 113/71
--- NOTE | 2019-01-25 18:30 | NUR ---
Problems reprioritized. Patient report given, questions answered & plan of care reviewed with Tameka RICARDO.
--- NOTE | 2019-01-25 18:50 | NUR ---
Received report from DAVION Sher. Patient is awake and alert on room air, in no apparent distress. Sister (Kym) at bedside. Call light and items of frequent use within reach. Will continue to monitor.
[2019-01-25] MEDS: CefTRIAXone/D5W-Rocephin 1gm 50 ML IV SCH (20:05)
[2019-01-25] MEDS: azithromycin 250mg tablet PO SCH (20:06)
[2019-01-25] MEDS: atorvastatin 20mg tablet PO SCH (20:06)
[2019-01-26] VITALS: BP 110/68
[2019-01-26 05:29] LABS: BASOPHILS % (AUTO) 0.2 % (0-1); EOSINOPHILS # (AUTO) 0.1 X10'3 (0-0.9); EOSINOPHILS % (AUTO) 1.9 % (0-6); HEMATOCRIT 33.7 % (42.0-52.0); HEMOGLOBIN 11.3 g/dl (14.0-17.9); LYMPHOCYTES # (AUTO) 0.6 X10'3 (1.1-4.8); LYMPHOCYTES % (AUTO) 7.7 % (21-51); MEAN CORPUSCULAR HEMOGLOBIN 31.6 PG (27.0-31.0); MEAN CORPUSCULAR HGB CONC 33.6 g/dL (33.0-36.5); MEAN PLATELET VOLUME 8.1 FL (7.4-10.4); MONOCYTES # (AUTO) 0.7 X10'3 (0-0.9); MONOCYTES % (AUTO) 9.2 % (2-12); NEUTROPHILS # (AUTO) 5.9 X10'3 (1.8-7.7); PLATELET COUNT 174 X10'3 (140-440); RED BLOOD COUNT 3.59 X10'6 (4.70-6.10); RED CELL DISTRIBUTION WIDTH 17.2 % (11.5-14.5); WHITE BLOOD COUNT 7.2 X10'3 (4.5-11.0)
[2019-01-26 05:46] LABS: ALANINE AMINOTRANSFERASE 21 U/L (12-78); ALBUMIN 2.4 G/DL (3.4-5.0); ALBUMIN/GLOBULIN RATIO 0.7 (1.1-1.5); ALKALINE PHOSPHATASE 52 IU/L (46-116); ANION GAP 5 (8-16); ASPARTATE AMINO TRANSFERASE 22 U/L (10-37); BILIRUBIN,TOTAL 0.9 MG/DL (0.1-1.0); BLOOD UREA NITROGEN 26 MG/DL (7-18); BUN/CREATININE RATIO 22.8 (5.4-32.0); CALCIUM 7.5 MG/DL (8.5-10.1); CHLORIDE 102 MMOL/L (99-107); CREATININE 1.14 MG/DL (0.60-1.10); GLUCOSE 113 MG/DL (70-104); MAGNESIUM 2.2 MG/DL (1.5-2.4); POTASSIUM 3.4 MMOL/L (3.5-5.1); SODIUM 138 MMOL/L (135-145); TOTAL CARBON DIOXIDE 31.2 MMOL/L (24-32); TOTAL PROTEIN 5.7 G/DL (6.4-8.2); eGFR 61 ML/MIN
--- NOTE | 2019-01-26 06:30 | NUR ---
Patient in room [facility]. I have received report from DAVION English and had the opportunity to ask questions and assume patient care.
[2019-01-26 08:00] VITALS: BP 115/70
[2019-01-26] MEDS: apixaban 5mg tablet PO SCH ×2 (08:14→19:53)
[2019-01-26] MEDS: lactobacillus rhamnosus 10,000 MMU CELLS/CAPSULE PO SCH ×2 (08:14→19:53)
[2019-01-26] MEDS: multivitamins, therapeutics tablet PO SCH (08:14)
[2019-01-26] MEDS: simethicone 80mg chew tab PO SCH ×3 (08:14→21:55)
[2019-01-26] MEDS: clopidogrel 75mg tablet PO SCH (08:14)
[2019-01-26] MEDS: magnesium oxide 400mg tablet PO SCH ×2 (08:14→19:53)
[2019-01-26] MEDS: levoTHYROXINE 25mcg tablet PO SCH (08:14)
[2019-01-26] MEDS: carvedilol 6.25mg tablet PO SCH ×2 (08:14→19:53)
[2019-01-26] MEDS: amiodarone 200mg tablet PO SCH (08:16)
[2019-01-26] MEDS: midodrine tablet 2.5 MG TABLET PO SCH ×2 (08:16→20:00)
[2019-01-26] MEDS: bumetanide 1mg tablet PO SCH ×2 (08:17→19:53)
[2019-01-26] MEDS: vitamin D (cholecalciferol) 1,000 unit tablet PO SCH (08:17)
[2019-01-26] MEDS: ascorbic acid 500mg tablet PO SCH (08:17)
[2019-01-26] MEDS: calcium carbonate 500mg tablet PO SCH (08:17)
[2019-01-26] MEDS: potassium Cl 20 mEq SR tablet PO PRN ×2 (08:18→16:26)
[2019-01-26 11:00] VITALS: BP 103/68
[2019-01-26] MEDS: lactose-reduced food (Ensure Enlive) - 237ml bottle PO SCH ×2 (13:00→18:00)
--- NOTE | 2019-01-26 14:11 | NUR ---
Initial: Pt admit w/ ALOC AOx1 DX recurrent sepsis secondary to PNA, metabolic encephalopathy r/t sepsis, and chronic diastolic heart failure EF 55-60% per MD note. Per MD note pt reports all food tasting odd though also AOx1. PO 0-10% heart healthy diet past 5 days not meeting needs. Ensure pudding TIDWM added and ensure enlive TIDWM added pending MD verification prior to sending on trays. RD d/w RN regarding Zinc supplementation if MD approves given altered taste. Pt receiving electrolyte replacement per protocol and MVI. LBM 01/25. Given pt severe weakness in addition to low PO hx qualifies for severe malnutrition at this time; MD notified. Not appropriate for ed given DX; deferred at this time. Will continue to monitor. Rec: 1. continue heart healthy diet per MD; consider change to regular if low PO persists 2. ensure enlive TIDWM pending MD verification prior to sending on trays 3. ensure pudding TIDWM 4. zinc per MD approval IF true altered taste of food and not simply ALOC-related 5. MVI per MD 6. routine bowel care Addendum: 01/26/19 at [address] Amended: Links added.
--- NOTE | 2019-01-26 18:33 | NUR ---
Problems reprioritized. Patient report given, questions answered & plan of care reviewed with Daxa Sheridan RN.
[2019-01-26 19:00] VITALS: BP 110/70
[2019-01-26] MEDS: azithromycin 250mg tablet PO SCH (19:53)
[2019-01-26] MEDS: atorvastatin 20mg tablet PO SCH (21:55)
[2019-01-26] MEDS: CefTRIAXone/D5W-Rocephin 1gm 50 ML IV SCH (21:55)
[2019-01-27] VITALS: BP 109/68
[2019-01-27 06:31] LABS: ALANINE AMINOTRANSFERASE 21 U/L (12-78); ALBUMIN 2.5 G/DL (3.4-5.0); ALBUMIN/GLOBULIN RATIO 0.7 (1.1-1.5); ALKALINE PHOSPHATASE 52 IU/L (46-116); ANION GAP 7 (8-16); ASPARTATE AMINO TRANSFERASE 25 U/L (10-37); BILIRUBIN,TOTAL 0.9 MG/DL (0.1-1.0); BLOOD UREA NITROGEN 28 MG/DL (7-18); BUN/CREATININE RATIO 23.5 (5.4-32.0); CALCIUM 8.1 MG/DL (8.5-10.1); CHLORIDE 100 MMOL/L (99-107); CREATININE 1.19 MG/DL (0.60-1.10); GLUCOSE 109 MG/DL (70-104); MAGNESIUM 2.3 MG/DL (1.5-2.4); POTASSIUM 3.3 MMOL/L (3.5-5.1); SODIUM 137 MMOL/L (135-145); TOTAL CARBON DIOXIDE 30.3 MMOL/L (24-32); TOTAL PROTEIN 5.9 G/DL (6.4-8.2); eGFR 58 ML/MIN
--- NOTE | 2019-01-27 06:34 | NUR ---
Problems reprioritized. Patient report given, questions answered & plan of care reviewed with DAVION Deluna.
[2019-01-27 07:00] VITALS: BP 125/74
[2019-01-27] MEDS: lactose-reduced food (Ensure Enlive) - 237ml bottle PO SCH ×2 (08:00→17:59)
[2019-01-27] MEDS: bumetanide 1mg tablet PO SCH ×2 (08:04→20:04)
[2019-01-27] MEDS: clopidogrel 75mg tablet PO SCH (08:04)
[2019-01-27] MEDS: midodrine tablet 2.5 MG TABLET PO SCH ×2 (08:04→20:00)
[2019-01-27] MEDS: potassium Cl 20 mEq SR tablet PO PRN ×2 (08:04→14:08)
[2019-01-27] MEDS: multivitamins, therapeutics tablet PO SCH (08:04)
[2019-01-27] MEDS: lactobacillus rhamnosus 10,000 MMU CELLS/CAPSULE PO SCH ×2 (08:04→20:04)
[2019-01-27] MEDS: apixaban 5mg tablet PO SCH ×2 (08:04→20:04)
[2019-01-27] MEDS: vitamin D (cholecalciferol) 1,000 unit tablet PO SCH (08:04)
[2019-01-27] MEDS: magnesium oxide 400mg tablet PO SCH ×2 (08:04→20:04)
[2019-01-27] MEDS: ascorbic acid 500mg tablet PO SCH (08:04)
[2019-01-27] MEDS: carvedilol 6.25mg tablet PO SCH ×2 (08:04→20:00)
[2019-01-27] MEDS: calcium carbonate 500mg tablet PO SCH (08:05)
[2019-01-27] MEDS: levoTHYROXINE 25mcg tablet PO SCH (08:05)
[2019-01-27] MEDS: simethicone 80mg chew tab PO SCH ×3 (08:05→22:08)
[2019-01-27] MEDS: amiodarone 200mg tablet PO SCH (08:05)
[2019-01-27 11:00] VITALS: BP 122/82
--- NOTE | 2019-01-27 18:22 | NUR ---
Problems reprioritized. Patient report given, questions answered & plan of care reviewed with DAVION Medley.
[2019-01-27 19:25] VITALS: BP 113/71
[2019-01-27] MEDS ORDERED: magnesium Cl slow-release 64mg tablet PO PRN (19:55)
[2019-01-27] MEDS ORDERED: magnesium 2GM in 50ml NS 50 ML IV PRN (19:55)
[2019-01-27] MEDS ORDERED: potassium Cl 20 mEq SR tablet PO PRN ×2 (19:55)
[2019-01-27] MEDS ORDERED: magnesium 4gm in 100ml NS 100 ML IV PRN (19:55)
[2019-01-27] MEDS ORDERED: potassium CL 10mEq/100ml bag 100 ML IV PRN (19:55)
[2019-01-27] MEDS: azithromycin 250mg tablet PO SCH (20:04)
[2019-01-27] MEDS: atorvastatin 20mg tablet PO SCH (22:08)
[2019-01-27] MEDS: CefTRIAXone/D5W-Rocephin 1gm 50 ML IV SCH (22:11)
[2019-01-27 23:23] VITALS: BP 125/75
[2019-01-28 05:28] LABS: BASOPHILS % (AUTO) 0.6 % (0-1); EOSINOPHILS # (AUTO) 0.2 X10'3 (0-0.9); EOSINOPHILS % (AUTO) 3.3 % (0-6); HEMOGLOBIN 11.7 g/dl (14.0-17.9); LYMPHOCYTES # (AUTO) 0.7 X10'3 (1.1-4.8); LYMPHOCYTES % (AUTO) 10.1 % (21-51); MEAN CORPUSCULAR HEMOGLOBIN 31.9 PG (27.0-31.0); MEAN CORPUSCULAR HGB CONC 34.3 g/dL (33.0-36.5); MEAN PLATELET VOLUME 8.3 FL (7.4-10.4); MONOCYTES # (AUTO) 0.6 X10'3 (0-0.9); MONOCYTES % (AUTO) 9.4 % (2-12); NEUTROPHILS # (AUTO) 5.3 X10'3 (1.8-7.7); NEUTROPHILS % (AUTO) 76.6 % (42-75); PLATELET COUNT 206 X10'3 (140-440); RED BLOOD COUNT 3.65 X10'6 (4.70-6.10); RED CELL DISTRIBUTION WIDTH 16.8 % (11.5-14.5); WHITE BLOOD COUNT 6.9 X10'3 (4.5-11.0)
[2019-01-28 05:39] LABS: ALANINE AMINOTRANSFERASE 20 U/L (12-78); ALBUMIN 2.4 G/DL (3.4-5.0); ALBUMIN/GLOBULIN RATIO 0.7 (1.1-1.5); ALKALINE PHOSPHATASE 54 IU/L (46-116); ANION GAP 2 (8-16); ASPARTATE AMINO TRANSFERASE 21 U/L (10-37); BILIRUBIN,TOTAL 0.8 MG/DL (0.1-1.0); BLOOD UREA NITROGEN 26 MG/DL (7-18); BUN/CREATININE RATIO 23.2 (5.4-32.0); CALCIUM 7.8 MG/DL (8.5-10.1); CHLORIDE 102 MMOL/L (99-107); CREATININE 1.12 MG/DL (0.60-1.10); GLUCOSE 106 MG/DL (70-104); MAGNESIUM 2.2 MG/DL (1.5-2.4); POTASSIUM 3.9 MMOL/L (3.5-5.1); SODIUM 138 MMOL/L (135-145); TOTAL CARBON DIOXIDE 33.9 MMOL/L (24-32); TOTAL PROTEIN 5.8 G/DL (6.4-8.2); eGFR 62 ML/MIN
--- NOTE | 2019-01-28 06:39 | NUR ---
Problems reprioritized. Patient report given, questions answered & plan of care reviewed with DAVION Deluna.
--- NOTE | 2019-01-28 07:19 | NUR ---
Patient in room [facility] 358. I have received report from Jasmyne Domingo RN and had the opportunity to ask questions and assume patient care.
[2019-01-28 08:00] VITALS: BP 114/72
[2019-01-28] MEDS: lactose-reduced food (Ensure Enlive) - 237ml bottle PO SCH ×2 (08:00→13:19)
[2019-01-28] MEDS: bumetanide 1mg tablet PO SCH (09:25)
[2019-01-28] MEDS: simethicone 80mg chew tab PO SCH ×2 (09:25→13:13)
[2019-01-28] MEDS: amiodarone 200mg tablet PO SCH (09:25)
[2019-01-28] MEDS: ascorbic acid 500mg tablet PO SCH (09:25)
[2019-01-28] MEDS: carvedilol 6.25mg tablet PO SCH (09:26)
[2019-01-28] MEDS: magnesium oxide 400mg tablet PO SCH (09:26)
[2019-01-28] MEDS: clopidogrel 75mg tablet PO SCH (09:27)
[2019-01-28] MEDS: multivitamins, therapeutics tablet PO SCH (09:27)
[2019-01-28] MEDS: lactobacillus rhamnosus 10,000 MMU CELLS/CAPSULE PO SCH (09:27)
[2019-01-28] MEDS: calcium carbonate 500mg tablet PO SCH (09:27)
[2019-01-28] MEDS: levoTHYROXINE 25mcg tablet PO SCH (09:27)
[2019-01-28] MEDS: apixaban 5mg tablet PO SCH (09:27)
[2019-01-28] MEDS: midodrine tablet 2.5 MG TABLET PO SCH (09:27)
[2019-01-28] MEDS: vitamin D (cholecalciferol) 1,000 unit tablet PO SCH (09:41)
[2019-01-28] MEDS ORDERED: CEFU500T66 PO (11:45)
[2019-01-28 12:58] VITALS: BP 100/61
--- NOTE | 2019-01-28 14:45 | NUR ---
Problems reprioritized. Patient report given, questions answered & plan of care reviewed with Coty Clayton at [facility].
--- NOTE | 2019-01-28 15:35 | NUR ---
Pt was discharged to [facility], Pt was picked up by [employer] van. Pt belonging were packed and carried out by [employer] race car driver and pt's family member. He was A & O, in no apparent distress.
== END 2019-01-28 14:49 | DRG 871 ==
LOC: ER 19:05 → SUR 3N 23:50 → CMPBEDREQ 01-22 00:08
PROVIDERS: ADMIT Hospitalist; ATTEND Family Medicine
DX: A41.9 Sepsis, unspecified organism (principal); G93.41 Metabolic encephalopathy; J18.1 Lobar pneumonia, unspecified organism; I50.32 Chronic diastolic (congestive) heart failure; N17.9 Acute kidney failure, unspecified; Q21.1 Atrial septal defect; I13.0 Hypertensive heart and chronic kidney disease with heart failure and stage 1 through stage 4 chronic kidney disease, or unspecified chronic kidney disease; N13.8 Other obstructive and reflux uropathy; J91.8 Pleural effusion in other conditions classified elsewhere; R31.0 Gross hematuria; I48.91 Unspecified atrial fibrillation; E87.5 Hyperkalemia; I25.10 Atherosclerotic heart disease of native coronary artery without angina pectoris; I35.9 Nonrheumatic aortic valve disorder, unspecified; K59.00 Constipation, unspecified; I87.8 Other specified disorders of veins; Z60.2 Problems related to living alone; E03.9 Hypothyroidism, unspecified; N18.9 Chronic kidney disease, unspecified; N40.1 Benign prostatic hyperplasia with lower urinary tract symptoms; K29.70 Gastritis, unspecified, without bleeding; K57.90 Diverticulosis of intestine, part unspecified, without perforation or abscess without bleeding; K80.20 Calculus of gallbladder without cholecystitis without obstruction; N40.0 Benign prostatic hyperplasia without lower urinary tract symptoms; Z79.01 Long term (current) use of anticoagulants; Z90.49 Acquired absence of other specified parts of digestive tract; Z88.8 Allergy status to other drugs, medicaments and biological substances; Z86.718 Personal history of other venous thrombosis and embolism; Z95.1 Presence of aortocoronary bypass graft
CPT/HCPCS: 36415; 70450; 71045; 71250; 74176; 80048; 80053; 80305; 81001; 83605; 83735; 83880; 84145; 84153; 84443; 84484; 85025; 85610; 85730; 87040; 87081; 87088; 92508; 92616; 93005; 93306; 96365; 97110; 97116; 97162; 97530; 99285; G0378; J0456; J0696; J1885; Q9963

== ENCOUNTER 2019-02-19 13:34 | Emergency (ER) | payer MEDICARE, OTHER ==
[~2019-02-19] VITALS: Ht 182.9 cm; Wt 80.0 kg
[~2019-02-19 13:34] MED LIST changes: +APIX5TAB3 PO; -ASPI-1071 PO; +ATOR20TA PO; -ATOR20TA66 PO; +BUME1TAB8 PO; +CEFU500T66 PO; -CHOL10002 PO; +CHOL100046 PO; +CLOP75TA33 PO; -CLOP75TA35 PO; +MIDO2.5T14 PO; -MIDO5TAB4 PO; +MULT-955 PO; +POTA10TA19 PO
[2019-02-19] MEDS ORDERED: cocaine 4% topical solution 4ml bottle MM ONE (13:55)
[2019-02-19] MEDS ORDERED: oxymetazoline 15 ML nasal spray NS PRN (13:55)
--- NOTE | 2019-02-19 14:48 | NUR ---
[facility] by Dr. Farias.
--- NOTE | 2019-02-19 15:36 | NUR ---
low bp reading prior dc,patient asymptomatic,Dr. Farias made aware,no new order at this time,cleared patient for dc.
[2019-02-19 15:38] VITALS: BP 81/50
== END 2019-02-19 15:39 | disposition home or self-care (01) ==
LOC: ER 13:35
DX: R04.0 Epistaxis (principal); I48.91 Unspecified atrial fibrillation; I25.10 Atherosclerotic heart disease of native coronary artery without angina pectoris; I11.0 Hypertensive heart disease with heart failure; I50.9 Heart failure, unspecified; Z86.718 Personal history of other venous thrombosis and embolism; Z95.1 Presence of aortocoronary bypass graft; Z90.49 Acquired absence of other specified parts of digestive tract; Z98.890 Other specified postprocedural states; Z88.8 Allergy status to other drugs, medicaments and biological substances; Z79.899 Other long term (current) drug therapy; Z79.2 Long term (current) use of antibiotics
CPT/HCPCS: 30901; 99284

== ENCOUNTER 2019-02-22 17:46 | Emergency (ER) | payer MEDICARE, OTHER ==
[~2019-02-22] VITALS: Ht 182.9 cm; Wt 82.0 kg
[2019-02-22 17:53] VITALS: BP 111/69
[2019-02-22] MEDS ORDERED: amox tr/potassium clavulanate 875/125mg TAB PO ONE (19:55)
[2019-02-22] MEDS ORDERED: AMOX-419 PO (19:56)
== END 2019-02-22 20:10 | disposition home or self-care (01) ==
LOC: ER 17:47
DX: R04.0 Epistaxis (principal); I48.91 Unspecified atrial fibrillation; I25.10 Atherosclerotic heart disease of native coronary artery without angina pectoris; I11.0 Hypertensive heart disease with heart failure; I50.9 Heart failure, unspecified; Z48.00 Encounter for change or removal of nonsurgical wound dressing; Z88.8 Allergy status to other drugs, medicaments and biological substances; Z79.899 Other long term (current) drug therapy; Z79.2 Long term (current) use of antibiotics; Z86.718 Personal history of other venous thrombosis and embolism; Z90.49 Acquired absence of other specified parts of digestive tract; Z95.1 Presence of aortocoronary bypass graft; Z98.890 Other specified postprocedural states; Z86.79 Personal history of other diseases of the circulatory system
CPT/HCPCS: 99284

== ENCOUNTER 2019-06-17 12:39 | Outpatient (CLI) | payer MEDICARE, OTHER | END 2019-06-17 23:59 | disposition home or self-care (01) | LOC: CARD DIAG 12:39 | PROVIDERS: ATTEND Internal Medicine Cardiovascular Disease | DX: I08.3 Combined rheumatic disorders of mitral, aortic and tricuspid valves (principal); R06.02 Shortness of breath; I50.22 Chronic systolic (congestive) heart failure | CPT/HCPCS: 71046; 93306 ==